=== PATIENT | male | born 2000 | race African-American/Black ===

== ENCOUNTER 2018-08-05 16:52 | Emergency (ER) | payer BC, MEDICAID, OTHER ==
[~2018-08-05] VITALS: Ht 177.8 cm; Wt 65.8 kg
[~2018-08-05 16:52] MED LIST: ZOFRAN ODT4 MG ORAL
[2018-08-05] MEDS ORDERED: NKM (16:57)
[2018-08-05 17:05] VITALS: BP 121/68
[2018-08-05] MEDS ORDERED: Tetanus/Diptheria/Pertussis IM ONE (17:15)
[2018-08-05] MEDS ORDERED: Surgicel 4in x 8in TOPIC ONE (17:15)
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
[2018-08-05] MEDS ORDERED: IBUPROFEN600 MG ORAL (17:29)
[2018-08-05 17:36] VITALS: BP 121/68
--- NOTE | 2018-08-05 18:35 | Diagnostic Imaging Report ---
Indication: Right index finger pain Technique: 3 views of the right index finger Comparison: none Findings: There is a fracture of the anterior corner of the base of the second middle phalanx. The edges of the fracture fragments may be corticated. No radiopaque foreign body demonstrated. No other evidence of acute fracture. No dislocation. No soft tissue gas Impression: Fracture of the anterior corner of the base of the second middle phalanx. Per discussion with referring physician, probably not acute patient presents with history of finger laceration No definite acute bony trauma No radiopaque foreign body or soft tissue gas
== END 2018-08-05 17:36 | disposition home or self-care (01) ==
LOC: EMR 17:27
DX: Z23 Encounter for immunization (principal)
CPT/HCPCS: 90471; 90715; 99283

== ENCOUNTER 2019-02-07 17:20 | Emergency (ER) | payer OTHER ==
[~2019-02-07] VITALS: Ht 177.8 cm; Wt 67.6 kg
[~2019-02-07 17:20] MED LIST changes: +IBUPROFEN600 MG ORAL; +NKM
[2019-02-07 17:41] VITALS: BP 103/54
--- NOTE | 2019-02-07 18:32 | Emergency Room Report ---
History of Present Illness General Chief Complaint: Eye Problems Source: Patient Present Illness HPI 18-year-old male presents to the emergency department complaining of 10 out of 10 severity pain, tenderness, swelling to a bump on the top right eyelid x2 days. Patient reports he had some drainage from the site and it is now improving in size. Patient reports he previously had a stye in the same area. He denies changes in his vision, eye pain with movements, scratching or foreign body sensation of the eyes. Patient denies eye erythema or increased lacrimation. Patient is also complaining of increase in mucus in his sinuses as well as a dry nose. Denies fevers or chills. Allergies: Coded Allergies: No Known Allergies (Unverified , 06/21/13) Patient History Past Medical History: see triage record Past Surgical History: none Pertinent Family History: none Reviewed Nursing Documentation: PMH: Agreed; PSxH: Agreed Nursing Documentation-PMH Past Medical History: No Stated History Review of Systems All Other Systems: negative except mentioned in HPI Physical Exam Vital Signs Date Time Temp Pulse Resp B/P (MAP) Pulse Ox O2 Delivery O2 Flow Rate FiO2 02/07/19 17:41 80 16 103/54 (70) 98 Room Air Sp02 EP Interpretation: reviewed, normal General Appearance: no apparent distress, alert, GCS 15, non-toxic Head: normocephalic, atraumatic Eyes: bilateral eye normal inspection, bilateral eye PERRL, bilateral eye other - no lacrimation, no injection or erythema of the sclera. there is a small 1mm papule that is swollen / erythematous on the upper right eye lid. no evidence of infestation. No crusting. ENT: hearing grossly normal, normal voice, TMs + canals normal, uvula midline, dry mucus membranes, nasal congestion - evidence of dry blood from recent nosebleed. Neck: full range of motion Respiratory: lungs clear, normal breath sounds, speaking full sentences Cardiovascular #1: regular rate, rhythm, no edema Musculoskeletal: normal range of motion, gait/station normal, non-tender Neurologic: alert, motor strength/tone normal, oriented x3, sensory intact, responsive, speech normal Psychiatric: judgement/insight normal Skin: normal color Lymphatic: no adenopathy Medical Decision Making PA Attestation Dr. Velazco is my supervising Physician whom patient management has been discussed with. Diagnostic Impression: Primary Impression: Hordeolum externum (stye) Qualified Codes: H00.011 - Hordeolum externum right upper eyelid Additional Impression: Rhinitis Qualified Codes: J30.2 - Other seasonal allergic rhinitis ER Course 18-year-old male presents to the emergency department complaining of 10 out of 10 severity pain, tenderness, swelling to a bump on the top right eyelid x2 days. Patient reports he had some drainage from the site and it is now improving in size. Patient reports he previously had a stye in the same area. He denies changes in his vision, eye pain with movements, scratching or foreign body sensation of the eyes. Patient denies eye erythema or increased lacrimation. Patient is also complaining of increase in mucus in his sinuses as well as a dry nose. Denies fevers or chills. Ddx considered but are not limited to: FB, Corneal Ulcer, conjunctivitis. Iridis, hordeolum, chalazion. Vital signs: are WNL, pt. is afebrile H&PE are most consistent with: hordeolum externum of the Right eyelid. ORDERS: None required at this time ED INTERVENTIONS: none at this time. DISCHARGE: At this time pt. is stable for d/c to home. Will provide printed patient care instructions, and any necessary prescriptions. Care plan and follow up instructions have been discussed with the patient prior to discharge. Last Vital Signs Date Time Temp Pulse Resp B/P (MAP) Pulse Ox O2 Delivery O2 Flow Rate FiO2 02/07/19 17:41 16 103/54 98 Room Air 02/07/19 17:41 80 Disposition: HOME, SELF-CARE Condition: Stable Scripts Guaifenesin (Mucinex) 1,200 Mg Tab.er.12h 1200 MG PO Q12HR for 7 Days, #14 TAB Prov: Angeles Travis 02/07/19 Sodium Chloride (NASAL MOISTURIZING) 88 Ml [place] 1 APPLIC NS TID, #88 SPRAY Prov: Angeles Travis 02/07/19 Erythromycin Base (ERYTHROMYCIN*) 3.5 Gm Oint...g. 1 APPLIC RIGHT EYE TID, #3.5 GM 0 Refills Prov: Angeles Travis 02/07/19 Patient Instructions: Stye Additional Instructions: Take medications as directed. Follow up with a Maintenance Mgr in 3 days, even if your symptoms have resolved. --Please review list of primary care clinics, if you do not already have a primary care provider Return sooner to ED if new symptoms occur, or current symptoms become worse. - Please note that this Emergency Department Report was dictated using [employer] worker technology software, occasionally this can lead to erroneous entry secondary to interpretation by the dictation equipment. Angeles Travis Feb 07, 2019 18:32
[2019-02-07] MEDS ORDERED: ERYTHROMYCIN3.5 GM RIGHT EYE (18:34)
[2019-02-07] MEDS ORDERED: MUCINEX1200 MG PO (18:34)
[2019-02-07] MEDS ORDERED: NASAL MOISTURIZ88 ML NS (18:34)
[2019-02-07 18:40] VITALS: BP 103/54
--- NOTE | 2019-02-07 18:40 | NUR ---
ER DISCHARGE NOTE: Pt was seen due to right eye irritation and coughing. Patient is cleared to be discharged per PA, pt is aox4, on room air, with stable vital signs. pt was given dc and prescription instructions, pt was able to verbalize understanding, pt id band and removed. pt is able to ambulate with steady gait. pt took all belongings.
== END 2019-02-07 18:40 | disposition home or self-care (01) ==
LOC: EMR 18:19
DX: H00.011 Hordeolum externum right upper eyelid (principal); J30.2 Other seasonal allergic rhinitis
CPT/HCPCS: 99282